=== PATIENT | female | born 1940 | race Caucasian/White ===

== ENCOUNTER 2021-12-13 19:26 | Inpatient (IN) ==
[2021-12-13 20:55] LABS: ABS Basophils 0.1 10^3/ul (0-0.2); ABS Lymphocytes 1.8 10^3/ul (1.0-4.8); ABS Neutrophils 9.2 10^3/ul (1.5-7.7); Eosinophil % 0.3 %; Hematocrit 45 % (35-47); Hemoglobin 14.8 g/dL (12.0-16.0); Lymphocyte % 15.1 %; Mean Corpuscular HGB Conc 33 g/dL (31-36); Mean Corpuscular Hemoglobin 32 pg (27-31); Mean Corpuscular Volume 96 fL (80-97); Mean Platelet Volume 10.8 fL (7.4-10.4); Platelet Count 230 10^3/uL (150-450); Red Blood Count 4.69 10^6 /uL (3.70-4.87); Red Cell Distribution Width 15 % (10-15); White Blood Count 12.1 10^3/uL (3.5-10.8)
[2021-12-13 20:59] LABS: Urine Appearance Turbid; Urine Bilirubin 2+ (Negative); Urine Blood Negative (Negative); Urine Color Amber; Urine Glucose Negative (Negative); Urine Ketones 1+ (Negative); Urine Nitrite Negative (Negative); Urine Protein 1+(30 mg/dL) (Negative); Urine Specific Gravity 1.025 (1.002-1.030); Urine Urobilinogen Positive (Negative)
[2021-12-13 21:02] LABS: Urine Bacteria Absent (Absent); Urine Red Blood Cell 3+(>10/hpf) (Absent); Urine Squamous Epithelial Cell Present (Absent); Urine Transitional Epithelial Present (Absent); Urine White Blood Cell 3+(>20/hpf) (Absent)
[2021-12-13 21:53] LABS: ALT 12 U/L (7-52); AST 18 U/L (13-39); Acetaminophen < 15 mcg/mL; Albumin 4.1 g/dL (3.2-5.2); Albumin/Globulin Ratio 1.4 (1-3); Alcohol, S < 13 mg/dL (<13); Alkaline Phosphatase 83 U/L (35-149); Anion Gap 14 mmol/L (2-11); Blood Urea Nitrogen 35 mg/dL (6-24); CO2 Carbon Dioxide 21 mmol/L (22-32); Calcium 11.4 mg/dL (8.6-10.3); Chloride 104 mmol/L (101-111); Globulin 2.9 g/dL (2-4); Glucose 81 mg/dL (70-100); Lithium 0.98 mmol/L (0.6-1.2); Potassium 3.9 mmol/L (3.5-5.0); Salicylate < 2.50 mg/dL (<30); Sodium 139 mmol/L (135-145); eGFR CKD-EPI 38.5 (>60)
[2021-12-13 21:59] LABS: Urine Benzodiazepine Screen None Detected (None Detect); Urine Cannabinoids Screen None Detected (None Detect); Urine Opiates Screen None Detected (None Detect)
[2021-12-13 22:06] LABS: TSH Ultra Thyroid Stim Horm 2.39 mcIU/mL (0.34-5.60)
[2021-12-13] MEDS ORDERED: Lorazepam PYXIS KEY PRN ×2 (23:31→23:33)
[2021-12-13] MEDS ORDERED: Haloperidol 5 mg/ml SDV IV/IM 5 MG/ML AMP IM ONE (23:31)
[2021-12-13] MEDS ORDERED: LORazepam 2 mg VIAL 1 ml IM ONE ×2 (23:31→23:33)
[2021-12-14] MEDS ORDERED: Lactated Ringers 1000 ml BAG 1,000 ML IV SCH (02:00)
[2021-12-14] MEDS ORDERED: Albuterol HFA INHALER 8 gm MDI INH PRN (02:01)
[2021-12-14 02:44] LABS: Venous Bicarbonate HCO3 20.9 mmol/L (24-28)
[2021-12-14] MEDS ORDERED: cefTRIAXone 1 gm/50 mL D5W 1 GM/50 ML BAG IV ONE (03:00)
[2021-12-14] MEDS: Enoxaparin 30 MG/0.3 ML SYR SUBCUT SCH (03:21)
[2021-12-14 05:08] LABS: Magnesium 2.2 mg/dL (1.9-2.7)
[2021-12-14 08:18] LABS: ABS Basophils 0.1 10^3/ul (0-0.2); ABS Eosinophils 0.2 10^3/ul (0-0.6); ABS Lymphocytes 2.2 10^3/ul (1.0-4.8); ABS Monocytes 0.9 10^3/ul (0-0.8); ABS Neutrophils 6.4 10^3/ul (1.5-7.7); Hematocrit 40 % (35-47); Hemoglobin 12.9 g/dL (12.0-16.0); Lymphocyte % 22.6 %; Mean Corpuscular HGB Conc 33 g/dL (31-36); Mean Corpuscular Hemoglobin 31 pg (27-31); Mean Corpuscular Volume 96 fL (80-97); Mean Platelet Volume 10.7 fL (7.4-10.4); Platelet Count 179 10^3/uL (150-450); Red Blood Count 4.13 10^6 /uL (3.70-4.87); Red Cell Distribution Width 15 % (10-15); White Blood Count 9.9 10^3/uL (3.5-10.8)
[2021-12-14 08:46] LABS: Calcium 10.7 mg/dL (8.6-10.3); Magnesium 2.1 mg/dL (1.9-2.7); Potassium 4.2 mmol/L (3.5-5.0); eGFR CKD-EPI 51.6 (>60)
[2021-12-14] MEDS ORDERED: Aspirin EC 81 mg TAB.EC (enteric coated) PO SCH (09:00)
[2021-12-14] MEDS ORDERED: Alendronate 70 mg TAB (NF) PO SCH (09:00)
[2021-12-14] MEDS ORDERED: cefTRIAXone 1 gm/50 mL D5W 1 GM/50 ML BAG IV SCH (09:00)
[2021-12-14] MEDS ORDERED: DULoxetine DR 30 mg CAP PO SCH (09:00)
[2021-12-14] MEDS: RIVASTIGMINE 1.5 MG PO SCH ×2 (11:31→21:23)
[2021-12-14] MEDS ORDERED: Dextrose 50% Syringe 50 ml 25 GM/50 ML SYRINGE IV PUSH PRN (13:22)
[2021-12-14] MEDS: Memantine XR 14 mg CAP PO SCH (14:55)
[2021-12-14] MEDS ORDERED: NS 0.9% 1000 ml BAG 1,000 ML IV SCH (17:30)
[2021-12-14] MEDS: DULoxetine DR 60 mg CAP PO SCH (21:23)
[2021-12-15] MEDS: Enoxaparin 30 MG/0.3 ML SYR SUBCUT SCH (02:50)
[2021-12-15] MEDS: cefTRIAXone 1 gm/50 mL D5W 1 GM/50 ML BAG IV SCH (05:28)
[2021-12-15 07:10] LABS: Calcium 10.2 mg/dL (8.6-10.3); Potassium 3.4 mmol/L (3.5-5.0); eGFR CKD-EPI 72.9 (>60)
[2021-12-15] MEDS: RIVASTIGMINE 1.5 MG PO SCH ×2 (09:44→19:56)
[2021-12-15] MEDS: Memantine XR 14 mg CAP PO SCH (10:07)
[2021-12-15] MEDS ORDERED: Potassium Chlor 20 meq TAB.ER PO ONE ×2 (11:57→19:54)
[2021-12-15] MEDS: DULoxetine DR 60 mg CAP PO SCH (19:57)
[2021-12-16] MEDS: Enoxaparin 30 MG/0.3 ML SYR SUBCUT SCH (05:33)
[2021-12-16] MEDS: cefTRIAXone 1 gm/50 mL D5W 1 GM/50 ML BAG IV SCH (05:39)
[2021-12-16] MEDS: RIVASTIGMINE 1.5 MG PO SCH ×2 (08:01→20:04)
[2021-12-16] MEDS: Memantine XR 14 mg CAP PO SCH (08:02)
[2021-12-16] MEDS: Nystatin TOP POWDER 15 GM BTL TOPICAL SCH ×2 (18:00→20:10)
[2021-12-16] MEDS: DULoxetine DR 60 mg CAP PO SCH (20:04)
[2021-12-16] MEDS: Senna TAB 8.6 mg TAB PO SCH (23:31)
[2021-12-17] MEDS: cefTRIAXone 1 gm/50 mL D5W 1 GM/50 ML BAG IV SCH (05:18)
[2021-12-17] MEDS: Enoxaparin 30 MG/0.3 ML SYR SUBCUT SCH (05:56)
[2021-12-17 06:52] LABS: Calcium 9.9 mg/dL (8.6-10.3); eGFR CKD-EPI 83.9 (>60)
[2021-12-17] MEDS: Polyethylene Glycol 3350 17 GM PACKET PO SCH (08:17)
[2021-12-17] MEDS: RIVASTIGMINE 1.5 MG PO SCH ×2 (08:18→21:07)
[2021-12-17] MEDS: Memantine XR 14 mg CAP PO SCH (08:18)
[2021-12-17] MEDS: Nystatin TOP POWDER 15 GM BTL TOPICAL SCH ×3 (08:19→21:12)
[2021-12-17 14:38] LABS: ABS Eosinophils 0.4 10^3/ul (0-0.6); ABS Lymphocytes 1.3 10^3/ul (1.0-4.8); ABS Monocytes 0.8 10^3/ul (0-0.8); ABS Neutrophils 9.9 10^3/ul (1.5-7.7); Eosinophil % 3.4 %; Hematocrit 40 % (35-47); Hemoglobin 13.3 g/dL (12.0-16.0); Lymphocyte % 10.3 %; Mean Corpuscular HGB Conc 33 g/dL (31-36); Mean Corpuscular Hemoglobin 32 pg (27-31); Mean Corpuscular Volume 96 fL (80-97); Mean Platelet Volume 11.3 fL (7.4-10.4); Platelet Count 134 10^3/uL (150-450); Red Blood Count 4.21 10^6 /uL (3.70-4.87); Red Cell Distribution Width 15 % (10-15); White Blood Count 12.4 10^3/uL (3.5-10.8)
[2021-12-17 15:16] LABS: Albumin 3.2 g/dL (3.2-5.2); Albumin/Globulin Ratio 1.3 (1-3); C Reactive Protein 54.35 mg/L (<8.01); Calcium 9.9 mg/dL (8.6-10.3); Globulin 2.4 g/dL (2-4); Potassium 4.1 mmol/L (3.5-5.0); Total Bilirubin 0.4 mg/dL (0.2-1.0); Total Protein 5.6 g/dL (6.4-8.9); eGFR CKD-EPI 82.6 (>60)
[2021-12-17] MEDS: Senna TAB 8.6 mg TAB PO SCH (21:08)
[2021-12-17] MEDS: DULoxetine DR 60 mg CAP PO SCH (21:08)
[2021-12-18] MEDS: cefTRIAXone 1 gm/50 mL D5W 1 GM/50 ML BAG IV SCH (05:54)
[2021-12-18] MEDS: Enoxaparin 30 MG/0.3 ML SYR SUBCUT SCH (05:56)
[2021-12-18 06:47] LABS: ABS Eosinophils 0.5 10^3/ul (0-0.6); ABS Lymphocytes 1.4 10^3/ul (1.0-4.8); ABS Neutrophils 6.6 10^3/ul (1.5-7.7); Eosinophil % 4.9 %; Hematocrit 39 % (35-47); Hemoglobin 12.8 g/dL (12.0-16.0); Lymphocyte % 14.7 %; Mean Corpuscular HGB Conc 33 g/dL (31-36); Mean Corpuscular Hemoglobin 32 pg (27-31); Mean Corpuscular Volume 96 fL (80-97); Mean Platelet Volume 11.1 fL (7.4-10.4); Platelet Count 127 10^3/uL (150-450); Red Blood Count 4.06 10^6 /uL (3.70-4.87); Red Cell Distribution Width 15 % (10-15); White Blood Count 9.5 10^3/uL (3.5-10.8)
[2021-12-18] MEDS: RIVASTIGMINE 1.5 MG PO SCH ×2 (09:36→20:41)
[2021-12-18] MEDS: Memantine XR 14 mg CAP PO SCH (09:37)
[2021-12-18] MEDS: Polyethylene Glycol 3350 17 GM PACKET PO SCH (09:38)
[2021-12-18] MEDS: Nystatin TOP POWDER 15 GM BTL TOPICAL SCH ×3 (09:41→21:39)
[2021-12-18] MEDS: Senna TAB 8.6 mg TAB PO SCH (20:42)
[2021-12-18] MEDS: DULoxetine DR 60 mg CAP PO SCH (20:42)
[2021-12-19 06:39] LABS: Hematocrit 38 % (35-47); Hemoglobin 12.6 g/dL (12.0-16.0); Mean Corpuscular HGB Conc 33 g/dL (31-36); Mean Corpuscular Hemoglobin 32 pg (27-31); Mean Corpuscular Volume 96 fL (80-97); Mean Platelet Volume 11.1 fL (7.4-10.4); Platelet Count 150 10^3/uL (150-450); Red Blood Count 3.96 10^6 /uL (3.70-4.87); Red Cell Distribution Width 14 % (10-15); White Blood Count 7.3 10^3/uL (3.5-10.8)
[2021-12-19 07:21] LABS: Calcium 9.5 mg/dL (8.6-10.3); eGFR CKD-EPI 88.1 (>60)
[2021-12-19] MEDS ORDERED: ALENDRONATE 70 MG PO SCH (09:00)
[2021-12-19] MEDS: RIVASTIGMINE 1.5 MG PO SCH ×2 (09:23→19:57)
[2021-12-19] MEDS: Nystatin TOP POWDER 15 GM BTL TOPICAL SCH ×3 (09:24→19:58)
[2021-12-19] MEDS: Memantine XR 14 mg CAP PO SCH (09:24)
[2021-12-19] MEDS: Polyethylene Glycol 3350 17 GM PACKET PO SCH (09:25)
[2021-12-19 11:38] LABS: C Reactive Protein 13.08 mg/L (<8.01)
[2021-12-19] MEDS: Senna TAB 8.6 mg TAB PO SCH (19:57)
[2021-12-19] MEDS: DULoxetine DR 60 mg CAP PO SCH (19:57)
[2021-12-20 06:34] LABS: ABS Eosinophils 0.5 10^3/ul (0-0.6); ABS Lymphocytes 1.9 10^3/ul (1.0-4.8); ABS Neutrophils 4.2 10^3/ul (1.5-7.7); Eosinophil % 6.2 %; Hematocrit 38 % (35-47); Hemoglobin 12.5 g/dL (12.0-16.0); Mean Corpuscular HGB Conc 33 g/dL (31-36); Mean Corpuscular Hemoglobin 31 pg (27-31); Mean Corpuscular Volume 96 fL (80-97); Mean Platelet Volume 11.6 fL (7.4-10.4); Platelet Count 160 10^3/uL (150-450); Red Blood Count 4.02 10^6 /uL (3.70-4.87); Red Cell Distribution Width 15 % (10-15); White Blood Count 7.5 10^3/uL (3.5-10.8)
[2021-12-20] MEDS: Memantine XR 14 mg CAP PO SCH (09:33)
[2021-12-20] MEDS: Polyethylene Glycol 3350 17 GM PACKET PO SCH (09:34)
[2021-12-20] MEDS: RIVASTIGMINE 1.5 MG PO SCH ×2 (09:34→20:53)
[2021-12-20] MEDS: Nystatin TOP POWDER 15 GM BTL TOPICAL SCH ×3 (09:34→20:53)
[2021-12-20 20:33] LABS: HIT ELISA 0.063 OD (<0.400); Heparin PF4 Antibody Interp Negative (Negative)
[2021-12-20] MEDS: DULoxetine DR 60 mg CAP PO SCH (20:52)
[2021-12-20] MEDS: Senna TAB 8.6 mg TAB PO SCH (20:52)
[2021-12-21] MEDS: RIVASTIGMINE 1.5 MG PO SCH ×2 (10:26→21:11)
[2021-12-21] MEDS: Memantine XR 14 mg CAP PO SCH (10:27)
[2021-12-21] MEDS: Polyethylene Glycol 3350 17 GM PACKET PO SCH (10:27)
[2021-12-21] MEDS: Nystatin TOP POWDER 15 GM BTL TOPICAL SCH ×3 (10:28→21:10)
[2021-12-21] MEDS: Enoxaparin 40 MG/0.4 ML SYR SUBCUT SCH (14:45)
[2021-12-21] MEDS: Senna TAB 8.6 mg TAB PO SCH (21:12)
[2021-12-21] MEDS: DULoxetine DR 60 mg CAP PO SCH (21:12)
[2021-12-22] MEDS: Polyethylene Glycol 3350 17 GM PACKET PO SCH (07:21)
[2021-12-22] MEDS: Memantine XR 14 mg CAP PO SCH (09:44)
[2021-12-22] MEDS: RIVASTIGMINE 1.5 MG PO SCH ×2 (09:44→20:36)
[2021-12-22] MEDS: Nystatin TOP POWDER 15 GM BTL TOPICAL SCH ×3 (09:45→20:38)
[2021-12-22] MEDS ORDERED: Lactated Ringers 500 ml BAG 500 ML IV ONE (10:12)
[2021-12-22] MEDS: Enoxaparin 40 MG/0.4 ML SYR SUBCUT SCH (15:57)
[2021-12-22] MEDS: DULoxetine DR 60 mg CAP PO SCH (20:36)
[2021-12-23 06:12] LABS: Potassium 3.7 mmol/L (3.5-5.0)
[2021-12-23] MEDS: Nystatin TOP POWDER 15 GM BTL TOPICAL SCH (09:00)
[2021-12-23] MEDS: RIVASTIGMINE 1.5 MG PO SCH (09:32)
[2021-12-23] MEDS: Memantine XR 14 mg CAP PO SCH (09:32)
[2021-12-23 11:22] VITALS: BP 127/50
== END 2021-12-23 11:58 | disposition swing bed (61) | DRG 56 ==
LOC: ED 19:26 → EDHOLD 12-14 00:31 → SUATTDRO 12-14 00:31 → EDHOLD 12-14 08:15 → MED 12-14 08:45
PROVIDERS: ADMIT Internal Medicine; ATTEND Internal Medicine

== ENCOUNTER 2021-12-23 12:24 | Inpatient (IN) ==
[2021-12-23] MEDS ORDERED: Albuterol HFA INHALER 8 gm MDI INH PRN (12:44)
[2021-12-23] MEDS: Nystatin TOP POWDER 15 GM BTL TOPICAL SCH ×2 (16:32→21:09)
[2021-12-23] MEDS: Enoxaparin 40 MG/0.4 ML SYR SUBCUT SCH (16:32)
[2021-12-23] MEDS: DULoxetine DR 60 mg CAP PO SCH (21:08)
[2021-12-23] MEDS: CMCS: Rivastigmine 1.5 mg CAP (NF) PO SCH (21:10)
[2021-12-24] MEDS: CMCS: Rivastigmine 1.5 mg CAP (NF) PO SCH ×2 (07:53→22:59)
[2021-12-24] MEDS: Memantine XR 14 mg CAP PO SCH (07:53)
[2021-12-24] MEDS: Nystatin TOP POWDER 15 GM BTL TOPICAL SCH ×3 (07:53→23:11)
[2021-12-24] MEDS: Enoxaparin 40 MG/0.4 ML SYR SUBCUT SCH (13:38)
[2021-12-24] MEDS: DULoxetine DR 60 mg CAP PO SCH (22:59)
[2021-12-25] MEDS: Nystatin TOP POWDER 15 GM BTL TOPICAL SCH ×3 (08:03→22:03)
[2021-12-25] MEDS: CMCS: Rivastigmine 1.5 mg CAP (NF) PO SCH ×2 (08:04→21:59)
[2021-12-25] MEDS: Memantine XR 14 mg CAP PO SCH (08:05)
[2021-12-25] MEDS: Enoxaparin 40 MG/0.4 ML SYR SUBCUT SCH (13:50)
[2021-12-25] MEDS: DULoxetine DR 60 mg CAP PO SCH (21:58)
[2021-12-26] MEDS: CMCS: Rivastigmine 1.5 mg CAP (NF) PO SCH ×2 (07:58→20:17)
[2021-12-26] MEDS: Memantine XR 14 mg CAP PO SCH (07:59)
[2021-12-26] MEDS: Nystatin TOP POWDER 15 GM BTL TOPICAL SCH ×3 (08:00→20:21)
[2021-12-26] MEDS ORDERED: CMCS: Alendronate 70 mg TAB (NF) PO SCH (09:00)
[2021-12-26] MEDS: Enoxaparin 40 MG/0.4 ML SYR SUBCUT SCH (14:21)
[2021-12-26] MEDS: DULoxetine DR 60 mg CAP PO SCH (20:19)
[2021-12-27] MEDS: CMCS: Rivastigmine 1.5 mg CAP (NF) PO SCH ×2 (09:34→20:58)
[2021-12-27] MEDS: Memantine XR 14 mg CAP PO SCH (09:34)
[2021-12-27] MEDS: Nystatin TOP POWDER 15 GM BTL TOPICAL SCH ×3 (09:36→21:01)
[2021-12-27] MEDS: Enoxaparin 40 MG/0.4 ML SYR SUBCUT SCH (14:58)
[2021-12-27] MEDS: DULoxetine DR 60 mg CAP PO SCH (20:59)
[2021-12-28] MEDS: CMCS: Rivastigmine 1.5 mg CAP (NF) PO SCH ×2 (09:39→21:51)
[2021-12-28] MEDS: Memantine XR 14 mg CAP PO SCH (09:40)
[2021-12-28] MEDS: Nystatin TOP POWDER 15 GM BTL TOPICAL SCH ×3 (09:41→21:54)
[2021-12-28] MEDS: Enoxaparin 40 MG/0.4 ML SYR SUBCUT SCH (14:06)
[2021-12-28] MEDS: DULoxetine DR 60 mg CAP PO SCH (21:53)
[2021-12-29] MEDS ORDERED: NS 0.9% 1000 ml BAG 1,000 ML IV ONE (08:01)
[2021-12-29 08:25] LABS: Hematocrit 45 % (35-47); Hemoglobin 14.8 g/dL (12.0-16.0); Mean Corpuscular HGB Conc 33 g/dL (31-36); Mean Corpuscular Hemoglobin 31 pg (27-31); Mean Corpuscular Volume 96 fL (80-97); Mean Platelet Volume 10.6 fL (7.4-10.4); Platelet Count 232 10^3/uL (150-450); Red Blood Count 4.72 10^6 /uL (3.70-4.87); Red Cell Distribution Width 16 % (10-15); White Blood Count 23.2 10^3/uL (3.5-10.8)
[2021-12-29 08:43] LABS: Albumin 3.8 g/dL (3.2-5.2); Albumin/Globulin Ratio 1.3 (1-3); Calcium 10.4 mg/dL (8.6-10.3); Globulin 2.9 g/dL (2-4); Potassium 4.3 mmol/L (3.5-5.0); Total Bilirubin 0.3 mg/dL (0.2-1.0); Total Protein 6.7 g/dL (6.4-8.9)
[2021-12-29] MEDS: Memantine XR 14 mg CAP PO SCH (09:31)
[2021-12-29 09:32] LABS: ABS Basophils 0.1 10^3/ul (0-0.2); ABS Lymphocytes 0.7 10^3/ul (1.0-4.8); ABS Monocytes 1.2 10^3/ul (0-0.8); ABS Neutrophils 21.3 10^3/ul (1.5-7.7); Eosinophil % 0.1 %; Lymphocyte % 3.1 %
[2021-12-29] MEDS: Nystatin TOP POWDER 15 GM BTL TOPICAL SCH (09:32)
[2021-12-29] MEDS: CMCS: Rivastigmine 1.5 mg CAP (NF) PO SCH (09:32)
[2021-12-29 09:45] LABS: Urine Appearance Cloudy; Urine Bilirubin Negative (Negative); Urine Blood Negative (Negative); Urine Color Amber; Urine Glucose Negative (Negative); Urine Ketones Trace (Negative); Urine Nitrite Negative (Negative); Urine Protein Negative (Negative); Urine Specific Gravity 1.024 (1.002-1.030); Urine Urobilinogen Negative (Negative)
[2021-12-29 10:27] LABS: PCO2 Arterial 37 mmHg (35-45); PO2 Arterial 82 mmHg (80-100)
[2021-12-29 19:09] VITALS: BP 84/32
== END 2021-12-29 09:57 | disposition short-term general hospital (02) | DRG 871 ==
LOC: MED 12:24 → SUATTDRO 12:24
PROVIDERS: ADMIT Internal Medicine; ATTEND Hospitalist

== ENCOUNTER 2022-01-03 12:45 | Inpatient (IN) ==
[2022-01-03] MEDS ORDERED: Albuterol HFA INHALER 8 gm MDI INH PRN (13:09)
[2022-01-03] MEDS: Nystatin TOP POWDER 15 GM BTL TOPICAL SCH ×2 (18:27→21:46)
[2022-01-03] MEDS: DULoxetine DR 60 mg CAP PO SCH (21:46)
[2022-01-03] MEDS: CMCS: Rivastigmine 1.5 mg CAP (NF) PO SCH (21:47)
[2022-01-04 05:25] LABS: Hematocrit 37 % (35-47); Hemoglobin 11.8 g/dL (12.0-16.0); Mean Corpuscular HGB Conc 32 g/dL (31-36); Mean Corpuscular Hemoglobin 30 pg (27-31); Mean Corpuscular Volume 94 fL (80-97); Mean Platelet Volume 9.4 fL (7.4-10.4); Platelet Count 192 10^3/uL (150-450); Red Cell Distribution Width 16 % (10-15); White Blood Count 10.9 10^3/uL (3.5-10.8)
[2022-01-04 06:01] LABS: Calcium 8.6 mg/dL (8.6-10.3); Potassium 3.8 mmol/L (3.5-5.0); eGFR CKD-EPI 79.9 (>60)
[2022-01-04 06:09] LABS: ABS Eosinophils 0.7 10^3/ul (0-0.6); ABS Lymphocytes 1.8 10^3/ul (1.0-4.8); ABS Monocytes 0.7 10^3/ul (0-0.8); ABS Neutrophils 7.7 10^3/ul (1.5-7.7); Lymphocyte % 16.5 %; Nucleated Red Blood Cells % 0.1
[2022-01-04] MEDS: CMCS: Rivastigmine 1.5 mg CAP (NF) PO SCH ×2 (10:03→22:37)
[2022-01-04] MEDS: Nystatin TOP POWDER 15 GM BTL TOPICAL SCH ×3 (10:04→22:38)
[2022-01-04] MEDS: Enoxaparin 40 MG/0.4 ML SYR SUBCUT SCH (11:55)
[2022-01-04] MEDS: DULoxetine DR 60 mg CAP PO SCH (22:35)
[2022-01-05] MEDS: CMCS: Rivastigmine 1.5 mg CAP (NF) PO SCH ×2 (08:56→23:15)
[2022-01-05] MEDS: Nystatin TOP POWDER 15 GM BTL TOPICAL SCH ×3 (08:56→23:21)
[2022-01-05] MEDS: Enoxaparin 40 MG/0.4 ML SYR SUBCUT SCH (13:14)
[2022-01-05] MEDS: DULoxetine DR 60 mg CAP PO SCH (23:16)
[2022-01-06] MEDS: Nystatin TOP POWDER 15 GM BTL TOPICAL SCH ×3 (09:04→22:27)
[2022-01-06] MEDS: CMCS: Rivastigmine 1.5 mg CAP (NF) PO SCH ×2 (09:06→22:25)
[2022-01-06] MEDS: Enoxaparin 40 MG/0.4 ML SYR SUBCUT SCH (12:40)
[2022-01-06] MEDS: DULoxetine DR 60 mg CAP PO SCH (22:24)
[2022-01-07] MEDS: CMCS: Rivastigmine 1.5 mg CAP (NF) PO SCH ×2 (08:43→20:28)
[2022-01-07] MEDS: Nystatin TOP POWDER 15 GM BTL TOPICAL SCH ×3 (08:43→20:29)
[2022-01-07] MEDS: Enoxaparin 40 MG/0.4 ML SYR SUBCUT SCH (13:30)
[2022-01-07] MEDS: DULoxetine DR 60 mg CAP PO SCH (20:27)
[2022-01-08] MEDS: CMCS: Rivastigmine 1.5 mg CAP (NF) PO SCH ×2 (10:21→22:25)
[2022-01-08] MEDS: Nystatin TOP POWDER 15 GM BTL TOPICAL SCH ×3 (10:22→22:26)
[2022-01-08] MEDS: Enoxaparin 40 MG/0.4 ML SYR SUBCUT SCH (13:50)
[2022-01-08] MEDS: DULoxetine DR 60 mg CAP PO SCH (22:25)
[2022-01-09] MEDS: CMCS: Rivastigmine 1.5 mg CAP (NF) PO SCH ×2 (10:36→21:21)
[2022-01-09] MEDS: Nystatin TOP POWDER 15 GM BTL TOPICAL SCH ×3 (10:37→21:23)
[2022-01-09] MEDS: Enoxaparin 40 MG/0.4 ML SYR SUBCUT SCH (14:19)
[2022-01-09] MEDS: CMCS: Alendronate 70 mg TAB (NF) PO SCH (14:19)
[2022-01-09] MEDS: DULoxetine DR 60 mg CAP PO SCH (21:21)
[2022-01-10 06:30] LABS: Hematocrit 32 % (35-47); Hemoglobin 10.5 g/dL (12.0-16.0); Mean Corpuscular HGB Conc 33 g/dL (31-36); Mean Corpuscular Hemoglobin 32 pg (27-31); Mean Corpuscular Volume 96 fL (80-97); Platelet Count 288 10^3/uL (150-450); Red Blood Count 3.34 10^6 /uL (3.70-4.87); Red Cell Distribution Width 16 % (10-15); White Blood Count 11.9 10^3/uL (3.5-10.8)
[2022-01-10 06:52] LABS: ABS Basophils 0.1 10^3/ul (0-0.2); ABS Eosinophils 0.6 10^3/ul (0-0.6); ABS Lymphocytes 2.4 10^3/ul (1.0-4.8); ABS Neutrophils 7.9 10^3/ul (1.5-7.7); Eosinophil % 4.8 %; Lymphocyte % 20.4 %
[2022-01-10 07:02] LABS: Calcium 9.2 mg/dL (8.6-10.3); Potassium 4.5 mmol/L (3.5-5.0); eGFR CKD-EPI 86.8 (>60)
[2022-01-10] MEDS: Nystatin TOP POWDER 15 GM BTL TOPICAL SCH ×4 (09:46→21:24)
[2022-01-10] MEDS: CMCS: Rivastigmine 1.5 mg CAP (NF) PO SCH ×2 (09:46→21:22)
[2022-01-10] MEDS: Enoxaparin 40 MG/0.4 ML SYR SUBCUT SCH (14:19)
[2022-01-10] MEDS: DULoxetine DR 60 mg CAP PO SCH (21:23)
[2022-01-11] MEDS: Nystatin TOP POWDER 15 GM BTL TOPICAL SCH ×3 (08:16→23:40)
[2022-01-11] MEDS: CMCS: Rivastigmine 1.5 mg CAP (NF) PO SCH ×2 (08:16→23:39)
[2022-01-11] MEDS: Enoxaparin 40 MG/0.4 ML SYR SUBCUT SCH (13:11)
[2022-01-11] MEDS: DULoxetine DR 60 mg CAP PO SCH (23:39)
[2022-01-12 07:40] LABS: ABS Basophils 0.1 10^3/ul (0-0.2); ABS Eosinophils 0.5 10^3/ul (0-0.6); ABS Lymphocytes 2.3 10^3/ul (1.0-4.8); ABS Monocytes 1.1 10^3/ul (0-0.8); ABS Neutrophils 4.7 10^3/ul (1.5-7.7); Eosinophil % 5.4 %; Hematocrit 31 % (35-47); Hemoglobin 10.1 g/dL (12.0-16.0); Lymphocyte % 26.6 %; Mean Corpuscular HGB Conc 33 g/dL (31-36); Mean Corpuscular Hemoglobin 32 pg (27-31); Mean Corpuscular Volume 96 fL (80-97); Mean Platelet Volume 8.8 fL (7.4-10.4); Platelet Count 293 10^3/uL (150-450); Red Blood Count 3.21 10^6 /uL (3.70-4.87); Red Cell Distribution Width 16 % (10-15); White Blood Count 8.7 10^3/uL (3.5-10.8)
[2022-01-12] MEDS: Nystatin TOP POWDER 15 GM BTL TOPICAL SCH ×3 (08:47→22:55)
[2022-01-12] MEDS: CMCS: Rivastigmine 1.5 mg CAP (NF) PO SCH ×2 (09:01→22:56)
[2022-01-12] MEDS: Enoxaparin 40 MG/0.4 ML SYR SUBCUT SCH (13:07)
[2022-01-12] MEDS: DULoxetine DR 60 mg CAP PO SCH (22:55)
[2022-01-13] MEDS: CMCS: Rivastigmine 1.5 mg CAP (NF) PO SCH ×2 (09:37→20:09)
[2022-01-13] MEDS: Nystatin TOP POWDER 15 GM BTL TOPICAL SCH ×3 (09:38→20:10)
[2022-01-13] MEDS: Enoxaparin 40 MG/0.4 ML SYR SUBCUT SCH (13:57)
[2022-01-13] MEDS: DULoxetine DR 60 mg CAP PO SCH (20:09)
[2022-01-14] MEDS: CMCS: Rivastigmine 1.5 mg CAP (NF) PO SCH ×2 (08:49→21:00)
[2022-01-14] MEDS: Nystatin TOP POWDER 15 GM BTL TOPICAL SCH ×3 (10:42→21:02)
[2022-01-14] MEDS: Enoxaparin 40 MG/0.4 ML SYR SUBCUT SCH (11:39)
[2022-01-14] MEDS: DULoxetine DR 60 mg CAP PO SCH (21:01)
[2022-01-15] MEDS: CMCS: Rivastigmine 1.5 mg CAP (NF) PO SCH ×2 (09:10→20:50)
[2022-01-15] MEDS: Nystatin TOP POWDER 15 GM BTL TOPICAL SCH ×3 (09:30→20:52)
[2022-01-15] MEDS: Enoxaparin 40 MG/0.4 ML SYR SUBCUT SCH (11:59)
[2022-01-15] MEDS: DULoxetine DR 60 mg CAP PO SCH (20:50)
[2022-01-16] MEDS: CMCS: Alendronate 70 mg TAB (NF) PO SCH (10:18)
[2022-01-16] MEDS: CMCS: Rivastigmine 1.5 mg CAP (NF) PO SCH ×2 (10:18→21:37)
[2022-01-16] MEDS: Nystatin TOP POWDER 15 GM BTL TOPICAL SCH (10:19)
[2022-01-16] MEDS: Enoxaparin 40 MG/0.4 ML SYR SUBCUT SCH (12:55)
[2022-01-16] MEDS: DULoxetine DR 60 mg CAP PO SCH (21:37)
[2022-01-17] MEDS: CMCS: Rivastigmine 1.5 mg CAP (NF) PO SCH ×2 (07:49→21:19)
[2022-01-17] MEDS: Enoxaparin 40 MG/0.4 ML SYR SUBCUT SCH (14:30)
[2022-01-17] MEDS: DULoxetine DR 60 mg CAP PO SCH (21:20)
[2022-01-18] MEDS: CMCS: Rivastigmine 1.5 mg CAP (NF) PO SCH ×2 (10:04→20:21)
[2022-01-18] MEDS: Enoxaparin 40 MG/0.4 ML SYR SUBCUT SCH (12:34)
[2022-01-18] MEDS: DULoxetine DR 60 mg CAP PO SCH (20:21)
[2022-01-19] MEDS: CMCS: Rivastigmine 1.5 mg CAP (NF) PO SCH ×2 (08:26→21:12)
[2022-01-19] MEDS: Enoxaparin 40 MG/0.4 ML SYR SUBCUT SCH (13:11)
[2022-01-19] MEDS: DULoxetine DR 60 mg CAP PO SCH (21:13)
[2022-01-20] MEDS: CMCS: Rivastigmine 1.5 mg CAP (NF) PO SCH ×2 (09:46→20:58)
[2022-01-20] MEDS: Enoxaparin 40 MG/0.4 ML SYR SUBCUT SCH (15:19)
[2022-01-20] MEDS: DULoxetine DR 60 mg CAP PO SCH (20:59)
[2022-01-21] MEDS: CMCS: Rivastigmine 1.5 mg CAP (NF) PO SCH ×2 (08:52→23:48)
[2022-01-21] MEDS: Enoxaparin 40 MG/0.4 ML SYR SUBCUT SCH (12:34)
[2022-01-21] MEDS: DULoxetine DR 60 mg CAP PO SCH (22:03)
[2022-01-22] MEDS: CMCS: Rivastigmine 1.5 mg CAP (NF) PO SCH ×3 (09:56→21:18)
[2022-01-22] MEDS: Enoxaparin 40 MG/0.4 ML SYR SUBCUT SCH (13:16)
[2022-01-22] MEDS: DULoxetine DR 60 mg CAP PO SCH (21:14)
[2022-01-23] MEDS: CMCS: Rivastigmine 1.5 mg CAP (NF) PO SCH ×2 (10:14→22:11)
[2022-01-23] MEDS: Enoxaparin 40 MG/0.4 ML SYR SUBCUT SCH (13:04)
[2022-01-23] MEDS: CMCS: Alendronate 70 mg TAB (NF) PO SCH (18:45)
[2022-01-23] MEDS: DULoxetine DR 60 mg CAP PO SCH (22:10)
[2022-01-24] MEDS: CMCS: Alendronate 70 mg TAB (NF) PO SCH (06:23)
[2022-01-24] MEDS: CMCS: Rivastigmine 1.5 mg CAP (NF) PO SCH ×2 (08:48→21:38)
[2022-01-24] MEDS: Enoxaparin 40 MG/0.4 ML SYR SUBCUT SCH (11:51)
[2022-01-24] MEDS: DULoxetine DR 60 mg CAP PO SCH (21:39)
[2022-01-24] MEDS ORDERED: Magnesium Hydroxide LIQ 30 ML UDC PO PRN (22:33)
[2022-01-24] MEDS: Magnesium Hydroxide LIQ 30 ML UDC PO SCH (22:49)
[2022-01-25] MEDS: Polyethylene Glycol 3350 17 GM PACKET PO PRN (08:02)
[2022-01-25] MEDS: CMCS: Rivastigmine 1.5 mg CAP (NF) PO SCH ×2 (08:02→21:43)
[2022-01-25] MEDS: Magnesium Hydroxide LIQ 30 ML UDC PO SCH ×2 (08:03→21:44)
[2022-01-25] MEDS: Enoxaparin 40 MG/0.4 ML SYR SUBCUT SCH (16:27)
[2022-01-25] MEDS: DULoxetine DR 60 mg CAP PO SCH (21:43)
[2022-01-26] MEDS: Magnesium Hydroxide LIQ 30 ML UDC PO SCH ×3 (08:27→22:21)
[2022-01-26] MEDS: Polyethylene Glycol 3350 17 GM PACKET PO PRN (08:27)
[2022-01-26] MEDS: CMCS: Rivastigmine 1.5 mg CAP (NF) PO SCH ×2 (08:28→22:19)
[2022-01-26] MEDS: Enoxaparin 40 MG/0.4 ML SYR SUBCUT SCH (14:06)
[2022-01-26] MEDS: Senna TAB 8.6 mg TAB PO PRN (22:19)
[2022-01-26] MEDS: DULoxetine DR 60 mg CAP PO SCH (22:20)
[2022-01-27] MEDS: CMCS: Rivastigmine 1.5 mg CAP (NF) PO SCH ×2 (08:58→21:26)
[2022-01-27] MEDS: Enoxaparin 40 MG/0.4 ML SYR SUBCUT SCH (13:09)
[2022-01-27] MEDS: DULoxetine DR 60 mg CAP PO SCH (21:27)
[2022-01-28] MEDS: CMCS: Rivastigmine 1.5 mg CAP (NF) PO SCH ×2 (08:45→21:54)
[2022-01-28] MEDS: Enoxaparin 40 MG/0.4 ML SYR SUBCUT SCH (12:15)
[2022-01-28] MEDS: DULoxetine DR 60 mg CAP PO SCH (21:55)
[2022-01-29] MEDS: CMCS: Rivastigmine 1.5 mg CAP (NF) PO SCH ×2 (09:33→21:28)
[2022-01-29] MEDS: Enoxaparin 40 MG/0.4 ML SYR SUBCUT SCH (15:29)
[2022-01-29] MEDS: Senna TAB 8.6 mg TAB PO PRN (21:26)
[2022-01-29] MEDS: DULoxetine DR 60 mg CAP PO SCH (21:26)
[2022-01-30] MEDS: CMCS: Rivastigmine 1.5 mg CAP (NF) PO SCH ×2 (09:40→20:31)
[2022-01-30] MEDS: Enoxaparin 40 MG/0.4 ML SYR SUBCUT SCH ×2 (13:11→13:54)
[2022-01-30] MEDS: DULoxetine DR 60 mg CAP PO SCH (20:32)
[2022-01-31] MEDS: CMCS: Alendronate 70 mg TAB (NF) PO SCH (07:14)
[2022-01-31] MEDS: CMCS: Rivastigmine 1.5 mg CAP (NF) PO SCH ×2 (08:06→20:06)
[2022-01-31] MEDS: Enoxaparin 40 MG/0.4 ML SYR SUBCUT SCH (13:04)
[2022-01-31] MEDS: DULoxetine DR 60 mg CAP PO SCH (20:06)
[2022-02-01 05:55] LABS: Hematocrit 34 % (35-47); Hemoglobin 11.5 g/dL (12.0-16.0); Mean Platelet Volume 9.9 fL (7.4-10.4); Platelet Count 209 10^3/uL (150-450)
[2022-02-01 06:20] LABS: eGFR CKD-EPI 59.4 (>60)
[2022-02-01] MEDS: CMCS: Rivastigmine 1.5 mg CAP (NF) PO SCH ×2 (08:59→21:15)
[2022-02-01] MEDS: Enoxaparin 40 MG/0.4 ML SYR SUBCUT SCH (13:22)
[2022-02-01] MEDS: DULoxetine DR 60 mg CAP PO SCH (21:17)
[2022-02-02] MEDS: CMCS: Rivastigmine 1.5 mg CAP (NF) PO SCH ×2 (09:29→20:59)
[2022-02-02] MEDS: Enoxaparin 40 MG/0.4 ML SYR SUBCUT SCH (14:42)
[2022-02-02 18:38] LABS: Rapid COVID-19 Molecular Undetected (Undetected)
[2022-02-02] MEDS: DULoxetine DR 60 mg CAP PO SCH (21:00)
[2022-02-03 08:52] VITALS: BP 144/57
[2022-02-03] MEDS: CMCS: Rivastigmine 1.5 mg CAP (NF) PO SCH (09:01)
== END 2022-02-03 10:10 | DRG 871 ==
LOC: SUATTDRO 12:45 → MED 12:45
PROVIDERS: ADMIT Physician Assistant; ATTEND Internal Medicine